=== PATIENT | female | born 1960 | race Caucasian/White ===

== ENCOUNTER 2023-11-09 10:54 | Emergency (ER) | payer MEDICARE, SELFPAY ==
[2023-11-09 11:03] VITALS: BP 145/74; PULSE 58; RESP 18; TEMP 36.7; O2SAT 99; BMI 35.1
[2023-11-09] MEDS: METHYLPREDNISOLONE SOD SUCC PF 125 MG/2 ML VIAL IM (11:47)
[2023-11-09] MEDS: KETOROLAC TROMETHAMINE 60 MG/2 ML VIAL IM (11:47)
--- NOTE | 2023-11-09 12:08 | XR_ITS ---
The [address] [address] Patient Name: MARGOTH WALLER MRN: [id number] date: 1960 Sex: F Assigned Patient Location: ED.MAIN Current Patient Location: Accession/Order Number: [id number] Exam Date: 11/09/2023 11:58 Report Date: 11/09/2023 12:29 At the request of: ELIANE BAPTISTE Procedure: XR lumbar spine 2-3V EXAM: XR lumbar spine 2-3V, XR hip RT 2V w/ pelvis HISTORY: low back pain right hip pain COMPARISON: None TECHNIQUE: 3 views of the lumbar spine were obtained to include AP, lateral and directed lateral lumbosacral views. FINDINGS: Vertebral body heights are grossly well-maintained. Mild disc space narrowing at L1-2, L2-3 and L4-5 with moderate narrowing suggested at L5-S1. Mild anterior spurring at multiple levels. Mild to moderate degenerative facet changes bilaterally at L4-5 and L5-S1 with mild changes at L3-4. No obvious spondylolysis or spondylolisthesis. No definite acute fracture or dislocation. Postoperative clips on the right. Two-view right hip and AP view pelvis study was performed with 3 images obtained in total. FINDINGS: Degenerative changes about the hip joints, moderate on the right and mild on the left. Sacroiliac joints appear grossly unremarkable. No definite acute fracture or dislocation. Scattered calcifications overlying the pelvis compatible with phleboliths. No significant soft tissue swelling. XR/XR lumbar spine 2-3V IMPRESSION: Lumbar spine study demonstrates degenerative changes as described. Right hip and AP view pelvis study demonstrates degenerative changes as noted. Follow-up as needed. Electronically authenticated by: TED FULLER Date: 11/09/2023 12:29
--- NOTE | 2023-11-09 12:08 | XR_ITS ---
The [address] [address] Patient Name: MARGOTH WALLER MRN: [id number] date: 1960 Sex: F Assigned Patient Location: ED.MAIN Current Patient Location: Accession/Order Number: [id number] Exam Date: 11/09/2023 11:58 Report Date: 11/09/2023 12:29 At the request of: ELIANE BAPTISTE Procedure: XR hip RT 2V w/ pelvis EXAM: XR lumbar spine 2-3V, XR hip RT 2V w/ pelvis HISTORY: low back pain right hip pain COMPARISON: None TECHNIQUE: 3 views of the lumbar spine were obtained to include AP, lateral and directed lateral lumbosacral views. FINDINGS: Vertebral body heights are grossly well-maintained. Mild disc space narrowing at L1-2, L2-3 and L4-5 with moderate narrowing suggested at L5-S1. Mild anterior spurring at multiple levels. Mild to moderate degenerative facet changes bilaterally at L4-5 and L5-S1 with mild changes at L3-4. No obvious spondylolysis or spondylolisthesis. No definite acute fracture or dislocation. Postoperative clips on the right. Two-view right hip and AP view pelvis study was performed with 3 images obtained in total. FINDINGS: Degenerative changes about the hip joints, moderate on the right and mild on the left. Sacroiliac joints appear grossly unremarkable. No definite acute fracture or dislocation. Scattered calcifications overlying the pelvis compatible with phleboliths. No significant soft tissue swelling. XR/XR hip RT 2V w/ pelvis IMPRESSION: Lumbar spine study demonstrates degenerative changes as described. Right hip and AP view pelvis study demonstrates degenerative changes as noted. Follow-up as needed. Electronically authenticated by: TED FULLER Date: 11/09/2023 12:29
[2023-11-09 12:37] LABS: Bilirubin Urine NEGATIVE (NEGATIVE); Blood Urine NEGATIVE (NEGATIVE); Clarity Urine CLEAR (CLEAR); Color Urine LT. YELLOW (YELLOW); Glucose Urine UA NEGATIVE (NEGATIVE); Ketones Urine NEGATIVE (NEGATIVE); Leukocyte Esterase Urine TRACE (NEGATIVE); Nitrite Urine NEGATIVE (NEGATIVE); Protein Urine NEGATIVE (NEG/TRACE); Specific Gravity Urine <=1.005 (1.005-1.025); Urobilinogen Urine 0.2 EU/dL (0.2-1.0); pH Urine 5.5 (5.0-9.0)
--- NOTE | 2023-11-09 12:40 | ED_ITS ---
HPI - General Adult General Chief complaint: Abdominal Pain Stated complaint: ABD PAIN Time Seen by Provider: 11/09/23 11:03 Source: patient Mode of arrival: Wheelchair History of Present Illness HPI narrative: Patient states that she developed low back pain, right hip/groin pain and midline lower abdominal pain 1-2 weeks ago. No injury. She is concerned that her mattress is causing the pain. No relief with tylenol. No nausea or vomiting. No diarrhea or difficulty having a BM. On questioning she told me that her urine has been orange - she denied taking any azo or other OTC remedy for urinary symptoms. No prior history of kidney stones. Chronic low back pain for a year or so - has no PCP and has not been evaluated elsewhere for these complaints. Related Data Home Medications Medication Instructions Recorded Confirmed aspirin 81 mg tablet,delayed 81 mg PO DAILY 11/09/23 11/09/23 release (Adult Low Dose Aspirin) Previous Rx's Medication Instructions Recorded methocarbamol 750 mg tablet 750 mg PO Q6H PRN pain #30 tabs 11/09/23 nabumetone 750 mg tablet 750 mg PO BID PRN pain #14 tabs 11/09/23 Allergies Allergy/AdvReac Type Severity Reaction Status Date / Time Sulfa (Sulfonamide Allergy Severe Verified 11/09/23 11:09 Antibiotics) [facility] Medical History (Updated 11/09/23 @ 13:49 by Darío Soriano) Depression ?F32.A - Depression, unspecified (ICD-10) Anxiety ?F41.9 - Anxiety disorder, unspecified (ICD-10) Diabetes ?E11.9 - Type 2 diabetes mellitus without complications (ICD-10) Exam Narrative Exam Narrative: General: Alert, no acute distress, patient resting comfortably Skin: warm, intact, no pallor noted Head: Normocephalic, atraumatic Eye: Normal conjunctiva Respiratory: No acute distress Abdomen: Normal bowel sounds, soft, no masses detected. Midline abdominal tenderness in lower abdomen. No RLQ tenderness. No rebound, guarding, or rigidity noted. Back: inspection of the back shows no obvious deformity, no swelling, no ecchymosis, contusion, abrasion, swelling, erythema, fluctuance or induration. Tenderness noted to lumbar region. Straight leg raise on left is negative. Straight leg raise on right is positive. No CVA tenderness noted bilaterally. Musculoskeletal: Tenderness throughout medial right hip. No deformity noted to bilateral lower extremities. no cyanosis or mottling noted. normal pulses at DP and PT 2+ bilaterally and symmetrically. Normal 5/5 strength at ankles with dorsiflexion and plantar flexion. Patient is able to ambulate. Normal sensation noted to both lower extremities. Neurological: AAOx4, normal sensory and motor observed. L5-S1 reflexes intact symmetrically. DTR 2+ at patellar bilaterally. Psychiatric: Cooperative and interactive. Constitutional Vital Signs, click to edit/add: Last Vital Signs Temp 98.0 F 11/09/23 11:03 Pulse 88 11/09/23 14:03 Resp 18 11/09/23 14:03 BP 129/72 11/09/23 14:03 Pulse Ox 98 11/09/23 14:03 O2 Del Method Room Air 11/09/23 11:03 Course Vital Signs Vital signs: Vital Signs Temperature 98.0 F 11/09/23 11:03 Pulse Rate 58 L 11/09/23 11:03 Respiratory Rate 18 11/09/23 11:03 Blood Pressure 145/74 H 11/09/23 11:03 Pulse Oximetry 99 11/09/23 11:03 Oxygen Delivery Method Room Air 11/09/23 11:03 Temperature 98.0 F 11/09/23 11:03 Pulse Rate 88 11/09/23 14:03 Respiratory Rate 18 11/09/23 14:03 Blood Pressure 129/72 11/09/23 14:03 Pulse Oximetry 98 11/09/23 14:03 Oxygen Delivery Method Room Air 11/09/23 11:03 Medical Decision Making MDM Narrative Medical decision making narrative: UA negative. Xrays of the right hip and lumbar spine obtained and show degenerative changes without acute fracture or dislocation. Patient given IM Solumedrol and IM Toradol in the ED. She was informed of results and discharged home with prescriptions for relafen and robaxin. She was given referral info for PCPs in the area taking new patients and encouraged to follow up for preventative testing and yearly checkups. Lab Data Lab results reviewed: Yes I reviewed the patient's lab results Labs: Lab Results 11/09/23 Range/Units 12:00 Urine Color Lt. yellow (YELLOW) Urine Clarity Clear (CLEAR) Urine pH 5.5 (5.0-9.0) Ur Specific [place] <=1.005 A (1.005-1.025) Urine Protein Negative (NEG/TRACE) mg/dL Urine Glucose (UA) Negative (NEGATIVE) mg/dL Urine Ketones Negative (NEGATIVE) mg/dL Urine Occult Blood Negative (NEGATIVE) Urine Nitrite Negative (NEGATIVE) Urine Bilirubin Negative (NEGATIVE) Urine Urobilinogen 0.2 (0.2-1.0) EU/dL Ur Leukocyte Esterase Trace A (NEGATIVE) Urine RBC None seen (0-2) #/HPF Urine WBC 0-2 A (NONE SEEN) #/HPF Ur Squamous Epith Cells Few A (NONE/RARE) #/LPF Urine Bacteria None seen (NONE SEEN) #/HPF Urine Mucus None seen (NONE SEEN) Ur Culture Indicated? No Imaging Data xr lumbar spine: Radiologist's impression: ITS Impressions Hip/Pelvis X-Ray 11/09/23 12:08 IMPRESSION: Lumbar spine study demonstrates degenerative changes as described. Right hip and AP view pelvis study demonstrates degenerative changes as noted. Follow-up as needed. Electronically authenticated by: TED FULLER Date: 11/09/2023 12:29 Lumbar Spine X-Ray 11/09/23 12:08 IMPRESSION: Lumbar spine study demonstrates degenerative changes as described. Right hip and AP view pelvis study demonstrates degenerative changes as noted. Follow-up as needed. Electronically authenticated by: TED FULLER Date: 11/09/2023 12:29 Discharge Plan Discharge Chief Complaint: Abdominal Pain Clinical Impression: Acute pain of right hip, Abdominal pain, Low back pain Patient Disposition: Home, Self-Care Time of Disposition Decision: 13:49 Prescriptions / Home Meds: New nabumetone 750 mg tablet 750 mg PO BID PRN (Reason: pain) Qty: 14 0RF methocarbamol 750 mg tablet 750 mg PO Q6H PRN (Reason: pain) Qty: 30 0RF No Action aspirin [Adult Low Dose Aspirin] 81 mg tablet,delayed release (DR/EC) 81 mg PO DAILY Instructions: Acute Low Back Pain (ED), Abdominal Pain (ED), Hip Pain (ED) Additional Instructions: refer to PCPs in the area taking new patients Stand Alone Forms: Portal Instructions Referrals: Physician,Non-Staff, MD [Primary Care Provider] - 1 week Discharge Date/Time: 11/09/23 14:04
[2023-11-09 12:46] LABS: Urine Microscopic Indicated YES
[2023-11-09 12:53] LABS: Bacteria Urine NONE SEEN #/HPF (NONE SEEN); Mucus Urine NONE SEEN (NONE SEEN); RBC Urine NONE SEEN #/HPF (0-2); Squamous Epithelial Cell Urine FEW #/LPF (NONE/RARE); WBC Urine 0-2 #/HPF (NONE SEEN)
[2023-11-09 12:54] LABS: Urine Culture Indicated NO
[2023-11-09 13:07] VITALS: BP 138/90; PULSE 88; RESP 18; O2SAT 98
[2023-11-09 14:03] VITALS: BP 129/72; PULSE 88; RESP 18; O2SAT 98
== END 2023-11-09 14:04 | disposition home or self-care (01) ==
PROVIDERS: Emergency Provider Emergency Medicine
DX: R10.9 Unspecified abdominal pain (principal); M54.50 Low back pain, unspecified; M25.551 Pain in right hip; Z79.82 Long term (current) use of aspirin; F32.A Depression, unspecified; F41.9 Anxiety disorder, unspecified; E11.9 Type 2 diabetes mellitus without complications
CPT/HCPCS: 72100; 73502; 81001; 96372; 99284; J1885; J2930